=== PATIENT | female | born 1980 | race Caucasian/White ===

== ENCOUNTER 2019-06-21 15:33 | Emergency (ER) | payer MEDICAID, OTHER ==
[2019-06-21 15:54] VITALS: BP 113/58
--- NOTE | 2019-06-21 16:56 | UC ---
Knee Pain HPI - HPI Summary HPI Summary: 39-year-old woman comes in with a chief complaint of left knee pain and swelling. Several days ago she started having some pain in the knee. Yesterday she was playing volleyball and during my particular move she had sudden increase in the pain in the lateral aspect of her left knee and she's had swelling in the ever since. Pain does get worse with ambulation although it is mild. Knee feels stable to walking. She does feel some clicking and the pain is primarily in the lateral aspect of the left knee. No locking. - History of Current Complaint Chief Complaint: UCLowerExtremity Stated Complaint: KNEE PAIN Time Seen by Provider: 06/21/19 16:13 Hx Last Menstrual Period: 06/08/18 Pain Intensity: 5 - Allergies/Home Medications Allergies/Adverse Reactions: Allergies Allergy/AdvReac Type Severity Reaction Status Date / Time No Known Allergies Allergy Verified 06/21/19 15:54 Home Medications: Home Medications NK [No Home Medications Reported] 06/21/19 [History Confirmed 06/21/19] PMH/Surg Hx/FS Hx/Imm Hx Previously Healthy: Yes - Surgical History Surgical History: Yes Surgery Procedure, Year, and Place: gallbladder - Family History Known Family History: Positive: Non-Contributory - Social History Alcohol Use: Weekly Substance Use Type: None Smoking Status (MU): Never Smoked Tobacco - Immunization History Most Recent Influenza Vaccination: 05/08 Most Recent Tetanus Shot: 08/27/15 Most Recent Pneumonia Vaccination: never Review of Systems All Other Systems Reviewed And Are Negative: Yes Constitutional: Positive: Negative Skin: Positive: Negative Eyes: Positive: Negative ENT: Positive: Negative Respiratory: Positive: Negative Cardiovascular: Positive: Negative Gastrointestinal: Positive: Negative Motor: Positive: Negative Neurovascular: Positive: Negative Musculoskeletal: Positive: Other: - SEE HPI Neurological: Positive: Negative Psychological: Positive: Negative Is Patient Immunocompromised?: No Physical Exam Triage Information Reviewed: Yes Appearance: Well-Appearing, No Pain Distress, Well-Nourished Vital Signs: Initial Vital Signs Temp 99.7 F 06/21/19 15:50 Pulse 70 06/21/19 15:50 Resp 16 06/21/19 15:50 BP 113/58 06/21/19 15:50 Pulse Ox 100 06/21/19 15:50 Vital Signs Reviewed: Yes Eye Exam: Normal Eyes: Positive: Conjunctiva Clear Neck: Positive: Supple Respiratory: Positive: No respiratory distress Musculoskeletal: Positive: Other: - Left knee has an effusion. Mild positive lateral Maykel's. Stable to exam. Patella is nontender to palpation in the collateral ligaments are nontender to palpation. Knee has full range of motion full-strength. Normal sensation normal capillary refill. Neurological: Positive: Alert, Muscle Tone Normal Psychological: Positive: Normal Response To Family, Age Appropriate Behavior Skin Exam: Normal Knee Pain Course/Dx - Course Course Of Treatment: Oven Tender Bagels: Wesly Drummond F, ([id number]) Welder Gas Tungsten Arc: YOLI ( NUANCE) Report Date: 06/21/2019 16:36:00 Report Status: Final ====== Start of Report Content Patient Name: HALINA AHUMADA Medical Record#: [id number] Ordering Physician: Elbert Yoder MD Acct.#: [id number] : Age: 39 Sex: F Location: [facility] Exam Date: 06/21/19 1613 ADM Status: REG ER Order Information: KNEE LEFT 4+ VWS Accession Number: [id number] CPT: 95449 INDICATION: Left knee injury. TECHNIQUE: 4 views of the left knee were obtained. FINDINGS: The bones are normal alignment. There is a small joint effusion present. No fracture is seen. Joint spaces appear maintained. IMPRESSION: SMALL JOINT EFFUSION, NO FRACTURE IS SEEN. <Electronically signed by Wesly Drummond MD in OV> 06/21/19 163 Dictated By: Wesly Drummond MD Dictated Date/Time: 01/28/20 1631 Transcribed Date/Time: 06/21/191630 Copy to: CC:Brielle Melo MD; Elbert Yoder MD Imaging - [facility] Imaging - [facility] Imaging - [facility] [address] [facility] [place] [address] [place] [address] [place] [address] ph ([phone]) ph ([phone]) ph ([phone]) End of Report Content I'm most suspicious for a lateral meniscal tear. I discussed the x-rays with the patient. Plan is ice anti-inflammatories. Deon wrap placed by nursing and clinic patient no rash intact after placement of the Deon wrap. Follow-up with sports medicine or orthopedics. - Differential Dx/Diagnosis Provider Diagnosis: Knee effusion, left Discharge ED - Sign-Out/Discharge Documenting (check all that apply): Patient Departure All imaging exams completed and their final reports reviewed: Yes - Discharge Plan Condition: Stable Disposition: HOME Patient Education Materials: Swollen Knee Joint (ED) Referrals: Brielle Melo MD [Primary Care Provider] - [facility] [Provider Group] Shayna Irwin MD [Medical Doctor] - Additional Instructions: FOLLOW UP WITH SPORTS MEDICINE OR ORTHOPEDICS. GET REEVALUATED SOONER IF NOT IMPROVED OR WORSE OR ANY QUESTIONS OR CONCERNS. - Billing Disposition and Condition Condition: STABLE Disposition: Home
== END 2019-06-21 17:16 | disposition home or self-care (01) ==
LOC: UCEAST 15:33
DX: M25.462 Effusion, left knee (principal); M25.562 Pain in left knee
CPT/HCPCS: 99202; G0463